=== PATIENT | female | born 1965 | race Two or more races ===

== ENCOUNTER 2019-10-24 22:23 | Inpatient (IN) | payer MEDICAID, OTHER ==
[~2019-10-24] VITALS: Ht 154.9 cm; Wt 73.2 kg
[2019-10-24 23:54] LABS: Basophils # (auto) 0 10 ^3/uL (0-0.2); Basophils % (auto) 0.1 % (0.0-2.0); Eosinophils # (auto) 0 10 ^3/uL (0-0.8); Hematocrit 36.7 % (36.0-46.0); Hemoglobin 12.1 g/dL (12.2-16.2); Lymphocytes # (auto) 1.3 10 ^3/uL (0.4-5.4); Lymphocytes % (auto) 9.1 % (10.0-50.0); Mean Corpuscular Hemoglobin 29.8 pg (28.0-32.0); Mean Corpuscular Hgb Conc. 32.9 g/dL (32.0-36.0); Mean Corpuscular Volume 90.5 fL (80.0-100.0); Monocytes # (auto) 0.3 10 ^3/uL (0-1.3); Monocytes % (auto) 2.2 % (0.0-12.0); Neutrophils # (auto) 12.7 10 ^3/uL (1.6-8.6); Neutrophils % (auto) 88.6 % (37.0-80.0); Platelet Count (auto) 221 10^3/uL (140-450); Red Blood Cells 4.06 10^6/uL (4.0-5.20); Red Cell Distribution Width 13.9 % (11.8-14.3); White Blood Cell 14.3 10^3/uL (4.4-10.8)
[2019-10-25 00:07] LABS: INR 0.96 (0.9-1.15); Partial Thromboplastin Time 28.9 sec (23.0-31.2)
[2019-10-25 00:11] LABS: Alanine Aminotransferase 27 U/L (13-56); Albumin 2.5 g/dL (3.4-5.0); Aspartate Aminotransferase 27 U/L (15-37); BUN/Creatinine Ratio 20.6; Blood Urea Nitrogen 13 mg/dL (7-18); Calcium 7.8 mg/dL (8.5-10.1); Carbon Dioxide 25 mmol/L (21-32); GFR African American 128 mL/min; GFR Non-African American 105 mL/min; Glucose 116 mg/dL (74-106)
[2019-10-25 00:30] LABS: Alkaline Phosphatase 114 U/L (45-117); Anion Gap 8 (5-15); Bilirubin, Total 0.3 mg/dL (0.2-1.0); Chloride 103 mmol/L (98-107); Potassium 3.6 mmol/L (3.5-5.1); Sodium 136 mmol/L (136-145); Total Protein 6.9 g/dL (6.4-8.2)
[2019-10-25] MEDS ORDERED: DexAMETHasone SOD PHOS 10MG/1ML VIAL INJ IV ONE (01:30)
[2019-10-25] MEDS ORDERED: DOXYCYCLINE 100MG/250ML 250 ML IV ONE (01:30)
[2019-10-25 02:04] LABS: Urine Bacteria NONE SEEN /hpf (None Seen); Urine Blood Negative /uL (Negative); Urine Specific Gravity 1.008 (1.001-1.035); Urine WBC <1 /hpf (0 - 5)
[2019-10-25] MEDS ORDERED: SODIUM CHLORIDE 0.9% 1,000 ML IV SCH (02:47)
[2019-10-25] MEDS ORDERED: ACETAMINOPHEN 500 MG TAB PO PRN (03:00)
[2019-10-25] MEDS ORDERED: ONDANSETRON HCL 4 MG/2 ML VIAL IV PRN (03:00)
[2019-10-25] MEDS ORDERED: TEMAZEPAM 15 MG CAP PO PRN (03:00)
[2019-10-25] MEDS ORDERED: HYDROcodone-ACET 5/325MG TAB PO PRN (03:00)
[2019-10-25] MEDS ORDERED: MORPHINE SULF INJ 2 MG/ML SYRINGE 1ML IV PRN (03:00)
[2019-10-25] MEDS ORDERED: DOCUSATE SOD 100 MG CAP PO PRN (03:00)
[2019-10-25 03:01] VITALS: BP 154/58
[2019-10-25 03:52] VITALS: BP_SYST 120; BP_SYST 126; BP_DIAS 71
[2019-10-25] MEDS ORDERED: AZIT250T9 PO (05:15)
[2019-10-25] MEDS ORDERED: ALBUAER3 IN (05:15)
[2019-10-25] MEDS ORDERED: ACET-1158 PO (05:15)
[2019-10-25] MEDS ORDERED: IBUP600T27 PO (05:15)
[2019-10-25] MEDS: ALBUTEROL SULF HFA 90MCG INH 200DOSE IN SCH ×3 (06:34→21:15)
[2019-10-25 08:00] VITALS: BP 102/58
[2019-10-25] MEDS: ZINC SULFATE 220mg CAP or TAB PO SCH (09:43)
[2019-10-25] MEDS: DexAMETHasone SOD PHOS 10MG/1ML VIAL INJ IV SCH (09:43)
[2019-10-25] MEDS: ASCORBIC ACID 1,000 MG TAB PO SCH (09:43)
[2019-10-25] MEDS: DOXYCYCLINE 100 MG TAB/CAP PO SCH ×2 (09:44→21:58)
[2019-10-25] MEDS: ENOXAPARIN SOD 40 MG/0.4 ML SYRINGE SC SCH (09:44)
[2019-10-25 12:00] VITALS: BP 105/58
[2019-10-25] MEDS: guaiFENesin-DM 100/10mg/5ml SYR PO PRN ×2 (12:20→21:59)
[2019-10-25] MEDS ORDERED: ZOLPIDEM TARTRATE 5 MG TAB PO ONE (13:15)
[2019-10-25] MEDS ORDERED: FUROSEMIDE 20 MG/2 ML VIAL IV ONE (13:30)
[2019-10-25 17:00] VITALS: BP 110/58
[2019-10-25 22:00] VITALS: BP 103/53
[2019-10-26 05:00] VITALS: BP 94/56
[2019-10-26] MEDS: ALBUTEROL SULF HFA 90MCG INH 200DOSE IN SCH ×3 (06:33→21:29)
[2019-10-26 07:22] LABS: Basophils # (auto) 0 10 ^3/uL (0-0.2); Basophils % (auto) 0.1 % (0.0-2.0); Eosinophils # (auto) 0 10 ^3/uL (0-0.8); Hematocrit 34.4 % (36.0-46.0); Hemoglobin 11.6 g/dL (12.2-16.2); Lymphocytes % (auto) 8.3 % (10.0-50.0); Mean Corpuscular Hemoglobin 30.5 pg (28.0-32.0); Mean Corpuscular Hgb Conc. 33.7 g/dL (32.0-36.0); Mean Corpuscular Volume 90.6 fL (80.0-100.0); Monocytes # (auto) 0.5 10 ^3/uL (0-1.3); Monocytes % (auto) 4.6 % (0.0-12.0); Platelet Count (auto) 274 10^3/uL (140-450); Red Blood Cells 3.79 10^6/uL (4.0-5.20); Red Cell Distribution Width 13.5 % (11.8-14.3); White Blood Cell 11.5 10^3/uL (4.4-10.8)
[2019-10-26 07:48] LABS: Albumin 2.5 g/dL (3.4-5.0); Calcium 8.6 mg/dL (8.5-10.1)
[2019-10-26 07:52] LABS: BUN/Creatinine Ratio 25.8; Bilirubin, Total 0.3 mg/dL (0.2-1.0)
[2019-10-26 08:00] VITALS: BP 110/65
[2019-10-26] MEDS: DexAMETHasone SOD PHOS 10MG/1ML VIAL INJ IV SCH (11:02)
[2019-10-26] MEDS: FUROSEMIDE 20 MG/2 ML VIAL IV SCH (11:03)
[2019-10-26] MEDS: DOXYCYCLINE 100 MG TAB/CAP PO SCH ×2 (11:04→22:24)
[2019-10-26] MEDS: ZINC SULFATE 220mg CAP or TAB PO SCH (11:04)
[2019-10-26] MEDS: ASCORBIC ACID 1,000 MG TAB PO SCH (11:04)
[2019-10-26] MEDS: ENOXAPARIN SOD 40 MG/0.4 ML SYRINGE SC SCH (11:05)
[2019-10-26 12:28] VITALS: BP 132/79
[2019-10-26 17:26] VITALS: BP 113/57
[2019-10-26 21:54] VITALS: BP 116/71
[2019-10-26] MEDS: ZOLPIDEM TARTRATE 5 MG TAB PO PRN (22:24)
[2019-10-26] MEDS: guaiFENesin-DM 100/10mg/5ml SYR PO PRN (22:25)
[2019-10-27] VITALS (7 sets, daily range): BP systolic 109–136; BP diastolic 53–70
[2019-10-27] MEDS: ALBUTEROL SULF HFA 90MCG INH 200DOSE IN SCH ×3 (06:38→23:34)
[2019-10-27 06:42] LABS: Basophils # (auto) 0 10 ^3/uL (0-0.2); Basophils % (auto) 0.2 % (0.0-2.0); Eosinophils # (auto) 0 10 ^3/uL (0-0.8); Hematocrit 35.7 % (36.0-46.0); Lymphocytes % (auto) 9.7 % (10.0-50.0); Mean Corpuscular Hemoglobin 30.6 pg (28.0-32.0); Mean Corpuscular Hgb Conc. 33.7 g/dL (32.0-36.0); Mean Corpuscular Volume 90.9 fL (80.0-100.0); Monocytes # (auto) 0.6 10 ^3/uL (0-1.3); Monocytes % (auto) 5.6 % (0.0-12.0); Neutrophils # (auto) 8.7 10 ^3/uL (1.6-8.6); Neutrophils % (auto) 84.5 % (37.0-80.0); Nucleated Red Blood Cells % 0.1 %; Platelet Count (auto) 317 10^3/uL (140-450); Red Blood Cells 3.93 10^6/uL (4.0-5.20); Red Cell Distribution Width 13.3 % (11.8-14.3); White Blood Cell 10.3 10^3/uL (4.4-10.8)
[2019-10-27 06:56] LABS: Potassium 3.9 mmol/L (3.5-5.1)
[2019-10-27 07:08] LABS: BUN/Creatinine Ratio 29.2; Calcium 8.5 mg/dL (8.5-10.1)
[2019-10-27] MEDS: DexAMETHasone SOD PHOS 10MG/1ML VIAL INJ IV SCH (09:09)
[2019-10-27] MEDS: FUROSEMIDE 20 MG/2 ML VIAL IV SCH (09:10)
[2019-10-27] MEDS: DOXYCYCLINE 100 MG TAB/CAP PO SCH ×2 (09:10→21:28)
[2019-10-27] MEDS: ASCORBIC ACID 1,000 MG TAB PO SCH (09:10)
[2019-10-27] MEDS: ZINC SULFATE 220mg CAP or TAB PO SCH (09:10)
[2019-10-27] MEDS: ENOXAPARIN SOD 40 MG/0.4 ML SYRINGE SC SCH (09:10)
[2019-10-27] MEDS: guaiFENesin-DM 100/10mg/5ml SYR PO PRN ×3 (09:11→21:28)
[2019-10-27] MEDS: LORazepam 0.5 MG TAB PO PRN (15:26)
[2019-10-27] MEDS: ZOLPIDEM TARTRATE 5 MG TAB PO PRN (21:28)
[2019-10-28 05:00] VITALS: BP 110/57
[2019-10-28 06:49] LABS: Basophils # (auto) 0.1 10 ^3/uL (0-0.2); Basophils % (auto) 0.5 % (0.0-2.0); Eosinophils # (auto) 0 10 ^3/uL (0-0.8); Eosinophils % (auto) 0.1 % (0.0-7.0); Hematocrit 37.4 % (36.0-46.0); Hemoglobin 12.4 g/dL (12.2-16.2); Lymphocytes # (auto) 1.4 10 ^3/uL (0.4-5.4); Lymphocytes % (auto) 11.9 % (10.0-50.0); Mean Corpuscular Hemoglobin 29.9 pg (28.0-32.0); Mean Corpuscular Hgb Conc. 33.2 g/dL (32.0-36.0); Monocytes # (auto) 0.5 10 ^3/uL (0-1.3); Monocytes % (auto) 4.7 % (0.0-12.0); Neutrophils # (auto) 9.5 10 ^3/uL (1.6-8.6); Neutrophils % (auto) 82.8 % (37.0-80.0); Nucleated Red Blood Cells % 0.1 %; Platelet Count (auto) 348 10^3/uL (140-450); Red Blood Cells 4.16 10^6/uL (4.0-5.20); Red Cell Distribution Width 13.1 % (11.8-14.3); White Blood Cell 11.5 10^3/uL (4.4-10.8)
[2019-10-28] MEDS: ALBUTEROL SULF HFA 90MCG INH 200DOSE IN SCH ×3 (07:08→20:29)
[2019-10-28 07:12] LABS: BUN/Creatinine Ratio 33.3; Calcium 8.6 mg/dL (8.5-10.1); Potassium 3.7 mmol/L (3.5-5.1)
[2019-10-28 08:31] VITALS: BP 121/57
[2019-10-28] MEDS: DexAMETHasone SOD PHOS 10MG/1ML VIAL INJ IV SCH (10:00)
[2019-10-28] MEDS: ZINC SULFATE 220mg CAP or TAB PO SCH (10:01)
[2019-10-28] MEDS: ASCORBIC ACID 1,000 MG TAB PO SCH (10:01)
[2019-10-28] MEDS: FUROSEMIDE 20 MG/2 ML VIAL IV SCH (10:01)
[2019-10-28] MEDS: ENOXAPARIN SOD 40 MG/0.4 ML SYRINGE SC SCH (10:01)
[2019-10-28] MEDS: DOXYCYCLINE 100 MG TAB/CAP PO SCH ×2 (10:01→22:01)
[2019-10-28 12:07] VITALS: BP 100/51
[2019-10-28 16:41] VITALS: BP 113/65
[2019-10-28 22:00] VITALS: BP 116/69
[2019-10-28] MEDS: ZOLPIDEM TARTRATE 5 MG TAB PO PRN (22:02)
[2019-10-28] MEDS: guaiFENesin-DM 100/10mg/5ml SYR PO PRN (22:02)
[2019-10-29 05:00] VITALS: BP 106/57
[2019-10-29 05:30] LABS: Basophils # (auto) 0 10 ^3/uL (0-0.2); Basophils % (auto) 0.2 % (0.0-2.0); Eosinophils # (auto) 0 10 ^3/uL (0-0.8); Eosinophils % (auto) 0.2 % (0.0-7.0); Hematocrit 36.5 % (36.0-46.0); Hemoglobin 12.6 g/dL (12.2-16.2); Lymphocytes # (auto) 1.3 10 ^3/uL (0.4-5.4); Lymphocytes % (auto) 12.1 % (10.0-50.0); Mean Corpuscular Hemoglobin 30.7 pg (28.0-32.0); Mean Corpuscular Hgb Conc. 34.6 g/dL (32.0-36.0); Mean Corpuscular Volume 88.7 fL (80.0-100.0); Monocytes # (auto) 0.3 10 ^3/uL (0-1.3); Monocytes % (auto) 2.9 % (0.0-12.0); Neutrophils # (auto) 9.2 10 ^3/uL (1.6-8.6); Neutrophils % (auto) 84.6 % (37.0-80.0); Platelet Count (auto) 338 10^3/uL (140-450); Red Blood Cells 4.11 10^6/uL (4.0-5.20); Red Cell Distribution Width 12.9 % (11.8-14.3); White Blood Cell 10.9 10^3/uL (4.4-10.8)
[2019-10-29 05:51] LABS: Albumin 2.7 g/dL (3.4-5.0); Potassium 3.8 mmol/L (3.5-5.1)
[2019-10-29 06:02] LABS: BUN/Creatinine Ratio 28.2; Bilirubin, Total 0.3 mg/dL (0.2-1.0); CRP High Sensitivity 3.63 mg/dL (< 0.3); Calcium 8.5 mg/dL (8.5-10.1)
[2019-10-29] MEDS: ALBUTEROL SULF HFA 90MCG INH 200DOSE IN SCH ×3 (07:05→22:20)
[2019-10-29 08:24] VITALS: BP 129/79
[2019-10-29] MEDS: DexAMETHasone SOD PHOS 10MG/1ML VIAL INJ IV SCH (10:20)
[2019-10-29] MEDS: DOXYCYCLINE 100 MG TAB/CAP PO SCH ×2 (10:20→21:15)
[2019-10-29] MEDS: ENOXAPARIN SOD 40 MG/0.4 ML SYRINGE SC SCH (10:21)
[2019-10-29] MEDS: FUROSEMIDE 20 MG/2 ML VIAL IV SCH (10:21)
[2019-10-29] MEDS: ASCORBIC ACID 1,000 MG TAB PO SCH (10:21)
[2019-10-29] MEDS: ZINC SULFATE 220mg CAP or TAB PO SCH (10:21)
[2019-10-29 12:33] VITALS: BP 100/74
[2019-10-29] MEDS ORDERED: FUROSEMIDE 20 MG/2 ML VIAL IV ONE (14:15)
[2019-10-29 16:39] VITALS: BP 98/74
[2019-10-29] MEDS: ACETAMINOPHEN 325 MG TAB PO PRN (21:15)
[2019-10-29 22:00] VITALS: BP 117/63
[2019-10-29] MEDS: LORazepam 0.5 MG TAB PO PRN (22:12)
[2019-10-30 05:00] VITALS: BP 114/65
[2019-10-30 06:26] LABS: Basophils # (auto) 0 10 ^3/uL (0-0.2); Basophils % (auto) 0.1 % (0.0-2.0); Eosinophils # (auto) 0.1 10 ^3/uL (0-0.8); Eosinophils % (auto) 0.9 % (0.0-7.0); Hematocrit 37.4 % (36.0-46.0); Hemoglobin 12.5 g/dL (12.2-16.2); Lymphocytes # (auto) 1.3 10 ^3/uL (0.4-5.4); Lymphocytes % (auto) 11.3 % (10.0-50.0); Mean Corpuscular Hemoglobin 29.9 pg (28.0-32.0); Mean Corpuscular Hgb Conc. 33.4 g/dL (32.0-36.0); Mean Corpuscular Volume 89.3 fL (80.0-100.0); Monocytes # (auto) 0.2 10 ^3/uL (0-1.3); Monocytes % (auto) 1.8 % (0.0-12.0); Neutrophils % (auto) 85.9 % (37.0-80.0); Platelet Count (auto) 354 10^3/uL (140-450); Red Blood Cells 4.18 10^6/uL (4.0-5.20); Red Cell Distribution Width 13.1 % (11.8-14.3); White Blood Cell 11.6 10^3/uL (4.4-10.8)
[2019-10-30 06:39] LABS: BUN/Creatinine Ratio 31.8; Calcium 8.4 mg/dL (8.5-10.1); Potassium 3.8 mmol/L (3.5-5.1)
[2019-10-30] MEDS: ALBUTEROL SULF HFA 90MCG INH 200DOSE IN SCH ×3 (07:46→22:28)
[2019-10-30 09:00] VITALS: BP 102/67
[2019-10-30] MEDS ORDERED: DEXTROSE (50%) 50ML SYRG IV PRN (11:00)
[2019-10-30] MEDS: DexAMETHasone SOD PHOS 10MG/1ML VIAL INJ IV SCH (11:37)
[2019-10-30] MEDS: ZINC SULFATE 220mg CAP or TAB PO SCH (11:38)
[2019-10-30] MEDS: FUROSEMIDE 20 MG/2 ML VIAL IV SCH (11:38)
[2019-10-30] MEDS: ASCORBIC ACID 1,000 MG TAB PO SCH (11:38)
[2019-10-30] MEDS: ENOXAPARIN SOD 40 MG/0.4 ML SYRINGE SC SCH (11:40)
[2019-10-30] MEDS: ACCU-CHEK COMFORT CURVE STRIP VI SCH ×3 (11:48→21:41)
[2019-10-30 14:52] VITALS: BP 114/70
[2019-10-30 15:50] VITALS: BP 114/79
[2019-10-30 16:46] VITALS: BP 128/79
[2019-10-30 21:39] VITALS: BP 118/68
[2019-10-30] MEDS: LORazepam 0.5 MG TAB PO PRN (22:00)
[2019-10-31] MEDS: ZOLPIDEM TARTRATE 5 MG TAB PO PRN (01:23)
[2019-10-31 04:41] VITALS: BP 117/67
[2019-10-31] MEDS: ACCU-CHEK COMFORT CURVE STRIP VI SCH ×2 (06:52→11:29)
[2019-10-31] MEDS: ALBUTEROL SULF HFA 90MCG INH 200DOSE IN SCH ×3 (07:06→22:27)
[2019-10-31 09:00] VITALS: BP 105/53
[2019-10-31] MEDS: FUROSEMIDE 20 MG/2 ML VIAL IV SCH (09:35)
[2019-10-31] MEDS: ZINC SULFATE 220mg CAP or TAB PO SCH (09:35)
[2019-10-31] MEDS: ENOXAPARIN SOD 40 MG/0.4 ML SYRINGE SC SCH (09:36)
[2019-10-31] MEDS: ASCORBIC ACID 1,000 MG TAB PO SCH (09:37)
[2019-10-31] MEDS: DexAMETHasone SOD PHOS 10MG/1ML VIAL INJ IV SCH (09:37)
[2019-10-31 13:00] VITALS: BP 99/54
[2019-10-31 17:01] VITALS: BP 122/65
[2019-10-31] MEDS: LORazepam 0.5 MG TAB PO PRN (20:51)
[2019-10-31 22:00] VITALS: BP 123/66
[2019-11-01 05:00] VITALS: BP 119/55
[2019-11-01 06:30] LABS: Basophils # (auto) 0.1 10 ^3/uL (0-0.2); Basophils % (auto) 0.8 % (0.0-2.0); Eosinophils # (auto) 0.1 10 ^3/uL (0-0.8); Eosinophils % (auto) 0.5 % (0.0-7.0); Hematocrit 36.7 % (36.0-46.0); Lymphocytes # (auto) 1.3 10 ^3/uL (0.4-5.4); Lymphocytes % (auto) 10.7 % (10.0-50.0); Mean Corpuscular Hemoglobin 29.3 pg (28.0-32.0); Mean Corpuscular Hgb Conc. 32.7 g/dL (32.0-36.0); Mean Corpuscular Volume 89.6 fL (80.0-100.0); Monocytes # (auto) 0.3 10 ^3/uL (0-1.3); Monocytes % (auto) 2.8 % (0.0-12.0); Neutrophils % (auto) 85.2 % (37.0-80.0); Platelet Count (auto) 357 10^3/uL (140-450); Red Cell Distribution Width 13.1 % (11.8-14.3); White Blood Cell 11.7 10^3/uL (4.4-10.8)
[2019-11-01] MEDS: ALBUTEROL SULF HFA 90MCG INH 200DOSE IN SCH ×3 (07:58→21:49)
[2019-11-01 09:00] VITALS: BP 101/65
[2019-11-01] MEDS: DexAMETHasone SOD PHOS 10MG/1ML VIAL INJ IV SCH (09:18)
[2019-11-01] MEDS: LORazepam 0.5 MG TAB PO PRN ×2 (09:19→21:15)
[2019-11-01] MEDS: ASCORBIC ACID 1,000 MG TAB PO SCH (09:19)
[2019-11-01] MEDS: FUROSEMIDE 20 MG/2 ML VIAL IV SCH ×2 (09:19→17:52)
[2019-11-01] MEDS: ENOXAPARIN SOD 40 MG/0.4 ML SYRINGE SC SCH (09:19)
[2019-11-01] MEDS: ZINC SULFATE 220mg CAP or TAB PO SCH (09:19)
[2019-11-01 13:00] VITALS: BP 101/63
[2019-11-01] MEDS ORDERED: cefTRIAXone 1GM/50ML D5W 50 ML IV ONE (13:45)
[2019-11-01] MEDS ORDERED: DEXTROSE (50%) 50ML SYRG IV PRN (13:45)
[2019-11-01] MEDS ORDERED: FUROSEMIDE 20 MG/2 ML VIAL IV ONE (13:45)
[2019-11-01] MEDS ORDERED: DOXYCYCLINE 100MG/250ML 250 ML IV SCH (13:45)
[2019-11-01] MEDS ORDERED: AZITHROMYCIN 500MG/ 250ML 250 ML IV ONE (14:00)
[2019-11-01] MEDS: SOD CHL 0.9%/ KCL 20MEQ 1,000 ML IV SCH (14:23)
[2019-11-01] MEDS: ACCU-CHEK COMFORT CURVE STRIP VI SCH ×2 (17:00→21:06)
[2019-11-01] MEDS: InsuLIN REG 1unit/0.01ml Soln (100units/ml) SC SCH (17:00)
[2019-11-01 17:01] VITALS: BP 109/66
[2019-11-01] MEDS ORDERED: InsuLIN REG 1unit/0.01ml Soln (100units/ml) SC SCH (22:00)
[2019-11-01 22:22] VITALS: BP 119/70
[2019-11-02 05:00] VITALS: BP 119/69
[2019-11-02] MEDS: FUROSEMIDE 20 MG/2 ML VIAL IV SCH ×2 (06:07→18:00)
[2019-11-02] MEDS: ACCU-CHEK COMFORT CURVE STRIP VI SCH ×3 (06:08→17:00)
[2019-11-02] MEDS: InsuLIN REG 1unit/0.01ml Soln (100units/ml) SC SCH ×3 (06:08→17:00)
[2019-11-02 06:44] LABS: Basophils # (auto) 0 10 ^3/uL (0-0.2); Basophils % (auto) 0.2 % (0.0-2.0); Eosinophils # (auto) 0.1 10 ^3/uL (0-0.8); Eosinophils % (auto) 0.7 % (0.0-7.0); Hematocrit 37.1 % (36.0-46.0); Hemoglobin 12.8 g/dL (12.2-16.2); Lymphocytes # (auto) 1.7 10 ^3/uL (0.4-5.4); Lymphocytes % (auto) 14.5 % (10.0-50.0); Mean Corpuscular Hemoglobin 30.4 pg (28.0-32.0); Mean Corpuscular Hgb Conc. 34.4 g/dL (32.0-36.0); Mean Corpuscular Volume 88.4 fL (80.0-100.0); Monocytes # (auto) 0.4 10 ^3/uL (0-1.3); Monocytes % (auto) 3.8 % (0.0-12.0); Neutrophils # (auto) 9.4 10 ^3/uL (1.6-8.6); Neutrophils % (auto) 80.8 % (37.0-80.0); Platelet Count (auto) 351 10^3/uL (140-450); Red Cell Distribution Width 12.9 % (11.8-14.3); White Blood Cell 11.7 10^3/uL (4.4-10.8)
[2019-11-02 07:00] LABS: INR 0.98 (0.9-1.15); Partial Thromboplastin Time 21.8 sec (23.0-31.2)
[2019-11-02 07:13] LABS: Calcium 8.7 mg/dL (8.5-10.1); Potassium 3.2 mmol/L (3.5-5.1)
[2019-11-02 07:22] LABS: Albumin 2.8 g/dL (3.4-5.0); BUN/Creatinine Ratio 27.8; Bilirubin, Total 0.3 mg/dL (0.2-1.0); Magnesium 2.5 mg/dL (1.6-2.6); Phosphorus 3.8 mg/dL (2.5-4.90); Total Protein 6.9 g/dL (6.4-8.2)
[2019-11-02] MEDS: ALBUTEROL SULF HFA 90MCG INH 200DOSE IN SCH ×2 (07:40→14:47)
[2019-11-02] MEDS: DexAMETHasone SOD PHOS 10MG/1ML VIAL INJ IV SCH (08:56)
[2019-11-02] MEDS: ASCORBIC ACID 1,000 MG TAB PO SCH (08:57)
[2019-11-02] MEDS: ENOXAPARIN SOD 40 MG/0.4 ML SYRINGE SC SCH (08:57)
[2019-11-02] MEDS: ZINC SULFATE 220mg CAP or TAB PO SCH (08:57)
[2019-11-02 09:00] VITALS: BP 103/65
[2019-11-02] MEDS ORDERED: cefTRIAXone 1GM/50ML D5W 50 ML IV SCH (09:00)
[2019-11-02] MEDS: SOD CHL 0.9%/ KCL 20MEQ 1,000 ML IV SCH (09:45)
[2019-11-02] MEDS ORDERED: AZITHROMYCIN 500MG/ 250ML 250 ML IV SCH (10:00)
[2019-11-02] MEDS ORDERED: DEX4T PO (12:06)
[2019-11-02] MEDS ORDERED: ASCO10003 PO (12:06)
[2019-11-02] MEDS: ACETAMINOPHEN 325 MG TAB PO PRN (12:07)
[2019-11-02 13:00] VITALS: BP 96/54
[2019-11-02 16:41] VITALS: BP 96/54
== END 2019-11-02 18:35 | disposition home or self-care (01) | DRG 137 ==
LOC: ER 22:23 → OVERFLOW 22:24 → EAST 10-25 03:52 → TELE-EAST 10-25 11:16
PROVIDERS: ADMIT Hospitalist; ATTEND Internal Medicine Pulmonary Disease
DX: U07.1 COVID-19 (principal); J96.01 Acute respiratory failure with hypoxia; J12.89 Other viral pneumonia; E66.01 Morbid (severe) obesity due to excess calories; Z68.31 Body mass index [BMI] 31.0-31.9, adult; E11.65 Type 2 diabetes mellitus with hyperglycemia
CPT/HCPCS: 36415; 36600; 71045; 80048; 80053; 81001; 82728; 82805; 82962; 83036; 83605; 83615; 83735; 84100; 84484; 85025; 85610; 85730; 86141; 86850; 86900; 86901; 87040; 93005; 93970; 94640; G0378; J0696; J1100; J1815; J3490